=== PATIENT | female | born 1950 | race Caucasian/White ===

== ENCOUNTER 2018-01-10 10:47 | Outpatient (CLI) | payer MEDICARE, BC ==
--- NOTE | 2018-01-10 17:30 | DEXA Report ---
DEXA SCAN: 01/10/2018 CLINICAL INDICATION: Postmenopausal, history of breast cancer. TECHNIQUE: Dual energy x-ray absorptiometry (DXA) was performed on a [employer] system. Regions measured are the AP spine, femoral neck, and, if needed, forearm. COMPARISON: None. In accordance with the International Society for Clinical Densitometry (ISCD) guidelines, data from previous exams may be reanalyzed using current recommendations and techniques. This is done to allow a more accurate basis for comparison with the current study. FINDINGS Data for the lumbar spine is as follows: REGION BMD (g/cm/cm) T-SCORE Z-SCORE L1 0.829 -2.5 -0.7 L2 0.779 -3.5 -1.7 L3 0.972 -1.9 -0.1 L4 1.035 -1.4 0.4 L1-L4 0.919 -2.2 -0.4 NOTE: All evaluable vertebrae are used for classification. Data for the hip is as follows: REGION BMD (g/cm/cm) T-SCORE Z-SCORE Neck 0.923 -0.8 0.9 TOTAL 0.947 -0.5 1.0 NOTE: The femoral neck or total proximal femur, whichever is lowest, is used for classification. IMPRESSION WHO CLASSIFICATION BASED ON THE INTERNATIONAL REFERENCE STANDARD IS OSTEOPENIA. FRACTURE RISK IS INCREASED. RECOMMENDATION: Patients with diagnosis of osteoporosis or osteopenia should have regular bone mineral density assessment. For those eligible for Medicare, routine testing is allowed once every 2 years. Testing frequency can be increased for patients who have rapidly progressing disease or for those who are receiving medical therapy to restore bone mass. COMMENT World Health Organization (WHO) definitions for osteoporosis and osteopenia: NORMAL BMD: T-score at 1.0 or higher, fracture risk is low. OSTEOPENIA BMD: T-score between 1.0 and -2.5, fracture risk is increased. OSTEOPOROSIS BMD: T-score at 2.5 or lower, fracture risk high. National Osteoporosis Foundation recommends: 1. Obtain adequate dietary calcium (at least 1200 mg per day) and vitamin D (400 -800 international units per day). 2. Participate, as appropriate, in regular weightbearing and muscle- strengthening exercise. 3. Avoid tobacco use and reduce alcohol and caffeine intake. 4. For more detailed information see the website at www.NOF.org. TD: 01/10/2018 12:50 MTDD
== END 2018-01-10 10:48 | disposition home or self-care (01) ==
LOC: DI 10:47
PROVIDERS: ATTEND Registered Nurse
DX: M85.88 Other specified disorders of bone density and structure, other site (principal); N95.8 Other specified menopausal and perimenopausal disorders; Z85.3 Personal history of malignant neoplasm of breast; Z79.811 Long term (current) use of aromatase inhibitors
CPT/HCPCS: 77080

== ENCOUNTER 2021-09-13 10:02 | Outpatient (CLI) | payer MEDICARE, BC ==
--- NOTE | 2021-09-13 13:07 | DEXA Report ---
PROCEDURE: Dexa Spine and/or Hip INDICATIONS: OSTEOPENIA TECHNIQUE: Dual energy x-ray absorptiometry (DXA) was performed on a [employer] System. Regions measur ed are the AP Spine, femoral neck, and if needed forearm. COMPARISON: DEXA, 01/10/2018. FINDINGS: Lumbar Spine: Bone Mineral Density 0.950 g/cm/cm,T score -1.9; increased by 3.4%. Left Hip: Bone Mineral Density 0.933 g/cm/cm,T score -0.6; not significant changed. Left Femoral Neck: Bone Mineral Density 0.870 g/cm/cm, T score -1.2; not significantly changed. (T score greater or equal to -1.0: NORMAL) (T score from -1.1 to -2.4: OSTEOPENIA) (T score less than or equal to -2.5 to: OSTEOPOROSIS) Impression: Based on WHO criteria, the patient is osteopenic. Compared to the last exam on 01/10/2018, the bone mineral density in lumbar spine is increased. Patients with diagnosis of osteoporosis or osteopenia should have regular bone mineral density assess ment. For those eligible for Medicare, routine testing is allowed once every 2 years. Testing frequ ency can be increased for patients who have rapidly progressing disease or for those who are receivin g medical therapy to restore bone mass. Reviewed by: Jacob Flood MD on 09/13/2021 1:06 PM PST Approved by: Jacob Flood MD on 09/13/2021 1:06 PM PST Station ID: [id number]
== END 2021-09-13 10:03 | disposition home or self-care (01) ==
LOC: DI 10:02
PROVIDERS: ATTEND Registered Nurse
DX: M85.89 Other specified disorders of bone density and structure, multiple sites (principal)

== ENCOUNTER 2022-09-27 15:21 | Outpatient (CLI) | payer MEDICARE, BC ==
--- NOTE | 2022-09-27 16:34 | XRAY Report ---
PROCEDURE: Chest 2 View X-Ray INDICATIONS: X RAY TECHNIQUE: 2 views of the chest were acquired. COMPARISON: None FINDINGS: Surgical changes and devices: None. Lungs and pleura: No pleural effusions or pneumothorax. Lungs are clear. Mediastinum: Mediastinal contours are normal. Heart size is normal. Bones and chest wall: No suspicious bony abnormalities. Soft tissues appear unremarkable. IMPRESSION: No acute cardiopulmonary pathology. Reviewed by: Vazquez Peoples MD on 09/27/2022 4:33 PM PST Approved by: Vazquez Peoples MD on 09/27/2022 4:33 PM PST Station ID: [id number]
== END 2022-09-27 15:22 | disposition home or self-care (01) ==
LOC: DI.S 15:21
PROVIDERS: ATTEND Nurse Practitioner Family
DX: R05.9 Cough, unspecified (principal)

== ENCOUNTER 2023-11-15 12:36 | Outpatient (CLI) | payer MEDICARE, BC ==
--- NOTE | 2023-11-15 14:38 | DEXA Report ---
PROCEDURE: Dexa Spine and/or Hip INDICATIONS: OSTEOPENIA TECHNIQUE: Dual energy x-ray absorptiometry (DXA) was performed on a [employer] System. Regions measur ed are the AP Spine, femoral neck, and if needed forearm. COMPARISON: 09/13/2021 FINDINGS: Lumbar Spine: Bone Mineral Density: 0.880 g/cm/cm,T score: -2.5. Since the most recent prior study, there has been a statistically significant decrease in bone mineral density by 7.4 percent. Left Femoral Neck: Bone Mineral Density: 0.906 g/cm/cm, T score: -0.9. Left Hip: Bone Mineral Density: 0.872 g/cm/cm,T score: -1.1. Since the most recent prior study, there has been a statistically significant decrease in bone mineral density by 6.5 percent. (T score greater or equal to -1.0: NORMAL) (T score from -1.1 to -2.4: OSTEOPENIA) (T score less than or equal to -2.5 to: OSTEOPOROSIS) Impression: By WHO criteria, this patient has osteoporosis. Interval statistical decrease in bone mineral density of the lumbar spine. Interval statistical decre ase in bone mineral density of the hip. Patients with diagnosis of osteoporosis or osteopenia should have regular bone mineral density assess ment. For those eligible for Medicare, routine testing is allowed once every 2 years. Testing frequ ency can be increased for patients who have rapidly progressing disease or for those who are receivin g medical therapy to restore bone mass. Reviewed by: Sami Bonilla MD on 11/15/2023 2:36 PM PST Approved by: Sami Bonilla MD on 11/15/2023 2:36 PM PST Station ID: [id number]
== END 2023-11-15 12:37 | disposition home or self-care (01) ==
LOC: DI 12:36
PROVIDERS: ATTEND Registered Nurse
DX: M85.89 Other specified disorders of bone density and structure, multiple sites (principal); M81.0 Age-related osteoporosis without current pathological fracture